=== PATIENT | female | born 1975 | race Caucasian/White ===

== ENCOUNTER 2016-06-20 23:52 | Emergency (ER) | END 2016-06-21 03:41 | disposition home or self-care (01) | DX: L02.414 Cutaneous abscess of left upper limb (principal); I10 Essential (primary) hypertension; E11.9 Type 2 diabetes mellitus without complications; Z79.4 Long term (current) use of insulin; Z79.84 Long term (current) use of oral hypoglycemic drugs | CPT/HCPCS: 10061; 96372; Z7502; Z7610 ==

== ENCOUNTER 2016-06-23 17:37 | Emergency (ER) | payer OTHER ==
[~2016-06-23] VITALS: Ht 160 cm; Wt 86.5 kg
[~2016-06-23 17:37] MED LIST: CLIN-73 PO; DOXY100T20 PO; HYDR-906 PO; IBUP-1542 PO; LANT3I SC; MECL12.574 PO; METF500T4 PO
[2016-06-23 19:31] VITALS: Ht 160 cm; Wt 86.5 kg
--- NOTE | 2016-06-23 20:35 | ERD ---
ER Documentation Chief Complaint Date/Time DATE: 06/23/16 TIME: 20:30 Chief Complaint wound check left arm HPI Patient is a 41-year-old female who presents to emergency department for wound check of the left arm abscess. Patient was seen here on 06/21/2016 for an I&D. Patient is given a prescription for clindamycin, ibuprofen and [place]. Patient states that she has been taking antibiotics as prescribed. Patient also states that she's been taking pain medication. Patient states her current pain level is an 8 out of 10. Last dose of pain medication was 2 PM today. Patient denies any fevers, chills, nausea, vomiting. Patient states she's been changing the dressing at least once a day. Patient denies any active bleeding or discharge from wound site. Tetanus is up-to-date per patient. ROS All systems reviewed and are negative except as per history of present illness. Medications Home Meds Active Scripts Hydrocodone/Acetaminophen ([place] 5-325 Tablet) 1 Each Tablet, 1 TAB PO Q6H Y for SEVERE PAIN LEVEL 7-10, #20 TAB Prov:RANDEE DELA CRUZ NP 06/21/16 Ibuprofen* (Motrin*) 600 Mg Tab, 600 MG PO Q6H Y for PAIN AND OR ELEVATED TEMP, #30 TAB Prov:RANDEE DELA CRUZ NP 06/21/16 Clindamycin Hcl* (Clindamycin Hcl*) 300 Mg Capsule, 300 MG PO TID for 10 Days, CAP Prov:RANDEE DELA CRUZ NP 06/21/16 Ibuprofen* (Motrin*) 600 Mg Tab, 600 MG PO Q6H Y for PAIN AND OR ELEVATED TEMP, #30 TAB Prov:RANDEE DELA CRUZ NP 04/18/16 Doxycycline Hyclate* (Doxycycline Hyclate*) 100 Mg Tablet.dr, 100 MG PO BID for 10 Days, TAB Prov:RANDEE DELA CRUZ NP 04/18/16 Meclizine Hcl* (Antivert*) 12.5 Mg Tab, 12.5 MG PO Q6H Y for DIZZINESS, #20 TAB Prov:ANDREW KNIGHT 01/06/16 Reported Medications Metformin* (Glucophage*) Unknown Strength Tab, PO WITH MEALS, #90 TAB 04/18/16 Insulin Glargine* (Lantus*) Unknown Strength Soln, SC DAILY, #1 VIAL 04/18/16 Allergies Allergies: Coded Allergies: No Known Allergy (Unverified , 01/06/16) PMhx/Soc History of Surgery: Yes (Cholecystectomy) Anesthesia Reaction: No Hx Neurological Disorder: No Hx Respiratory Disorders: No Hx Cardiac Disorders: Yes (HTN) Hx Psychiatric Problems: No Hx Miscellaneous Medical Probl: Yes (DM Type 2) Hx Alcohol Use: No Hx Substance Use: No Hx Tobacco Use: No Physical Exam Vitals Vital Signs Date Time Temp Pulse Resp B/P Pulse Ox O2 Delivery O2 Flow Rate FiO2 06/23/16 19:31 97.2 78 20 139/86 100 Physical Exam GENERAL: Well-developed, well-nourished female. Appears in no acute distress. HEAD: Normocephalic, atraumatic. EYES: Pupils are equally reactive bilaterally. EOMs grossly intact. No conjunctival erythema. ENT: Moist mucous membranes. No uvula deviation. No kissing tonsils. NECK: Supple. No lymphadenopathy or thyromegaly. No meningismus. LUNG: Clear to auscultation bilaterally. No rhonchi, wheezing, rales or coarse breath sounds. HEART: Regular rate and rhythm. No murmurs, rubs or gallops. EXTREMITIES: Equal pulses bilaterally. No peripheral clubbing, cyanosis or edema. No unilateral leg swelling. NEUROLOGIC: Alert and oriented. Moving all four extremities without any difficulty. Normal speech. Steady gait. SKIN: Normal color. Warm and dry. 6 cm circular erythematous abscess noted with packing in place. No active bleeding or discharge. Wound site appears dry. Minimal surrounding swelling. No lymphatic streaking. Procedures/MDM MEDICAL DECISION MAKING: This is a 41-year-old female who presents for wound check to left arm abscess. Patient had I&D of abscess on 06/21/16. Patient reports taking antibiotics as well as pain medication.. Vital signs were reviewed. Patient is afebrile. The wound appears to be healing well with no concerns of acute infection at this time. Packing was removed without any difficulty. Post-procedural wound care was discussed with the patient. PRESCRIPTIONS: Continue to take antibiotics as prescribed. Complete full course. DISCHARGE: At this time, the patient is stable for discharge and outpatient management. Post-procedural wound care was discussed with the patient. I have instructed the patient to promptly return to the ER for any new or worsening symptoms including increasing pain, fever, warmth, redness or swelling. The patient and/ or family expressed understanding of and agreement with this plan. All questions were answered. Home care instructions were provided. Departure Diagnosis: Primary Impression: Encounter for wound re-check Additional Impression: Abscess Condition: Stable Patient Instructions: Wound Care Referrals: [facility] YOU HAVE RECEIVED A MEDICAL SCREENING EXAM AND THE RESULTS INDICATE THAT YOU DO NOT HAVE A CONDITION THAT REQUIRES URGENT TREATMENT IN THE EMERGENCY DEPARTMENT. FURTHER EVALUATION AND TREATMENT OF YOUR CONDITION CAN WAIT UNTIL YOU ARE SEEN IN YOUR DOCTORS OFFICE WITHIN THE NEXT 1-2 DAYS. IT IS YOUR RESPONSIBILITY TO MAKE AN APPOINTMENT FOR FOLOW-UP CARE. IF YOU HAVE A PRIMARY DOCTOR --you should call your primary doctor and schedule an appointment IF YOU DO NOT HAVE A PRIMARY DOCTOR YOU CAN CALL OUR PHYSICIAN REFERRAL HOTLINE AT IF YOU CAN NOT AFFORD TO SEE A PHYSICIAN YOU CAN CHOSE FROM THE FOLLOWING [facility] [address] [facility] [address] [facility] [facility] [address] [facility] [address] [facility] [address] [facility] [facility] [address] [facility]. [facility] YOU HAVE RECEIVED A MEDICAL SCREENING EXAM AND THE RESULTS INDICATE THAT YOU DO NOT HAVE A CONDITION THAT REQUIRES URGENT TREATMENT IN THE EMERGENCY DEPARTMENT. FURTHER EVALUATION AND TREATMENT OF YOUR CONDITION CAN WAIT UNTIL YOU ARE SEEN IN YOUR DOCTORS OFFICE WITHIN THE NEXT 1-2 DAYS. IT IS YOUR RESPONSIBILITY TO MAKE AN APPOINTMENT FOR FOLOW-UP CARE. IF YOU HAVE A PRIMARY DOCTOR --you should call your primary doctor and schedule and appointment IF YOU DO NOT HAVE A PRIMARY DOCTOR YOU CAN CALL OUR PHYSICIAN REFERRAL HOTLINE AT . IF YOU CAN NOT AFFORD TO SEE A PHYSICIAN YOU CAN CHOSE FROM THE FOLLOWING [facility] INSTITUTIONS: [place] [id number] [place] [address] [facility] [address] [place] [address] [facility] + [facility] [address] [place] [address] Additional Instructions: Call your primary care doctor TOMORROW for an appointment during the next 1-2 days.See the doctor sooner or return here if your condition worsens before your appointment time. Take medication as prescribed. Return to emergency department for any worsening pain, swelling, warmth, fevers, chills. RUDI BAUER PA-C Jun 23, 2016 20:34
== END 2016-06-23 20:30 | disposition home or self-care (01) ==
LOC: E/R 17:37
DX: Z48.01 Encounter for change or removal of surgical wound dressing (principal); I10 Essential (primary) hypertension; E11.9 Type 2 diabetes mellitus without complications; Z79.84 Long term (current) use of oral hypoglycemic drugs; Z79.4 Long term (current) use of insulin
CPT/HCPCS: 99281

== ENCOUNTER 2017-01-29 14:39 | Emergency (ER) | payer OTHER ==
[~2017-01-29] VITALS: Ht 162.6 cm; Wt 85.0 kg
[2017-01-29 14:43] VITALS: Ht 162.6 cm; Wt 85.0 kg
[2017-01-29] MEDS ORDERED: KETOROLAC 30 MG INJ IV STA (15:29)
[2017-01-29] MEDS ORDERED: METOCLOPRAMIDE 10 MG INJ IV ONE (15:30)
[2017-01-29] MEDS ORDERED: DIPHENHYDRAMINE 50 MG INJ IV ONE (15:30)
[2017-01-29] MEDS ORDERED: SOD CHLORIDE 0.9% 1,000 ML IV ONE (15:30)
--- NOTE | 2017-01-29 16:06 | RADRPT ---
PROCEDURE: XR Chest. CLINICAL INDICATION: Abdominal pain TECHNIQUE: Single frontal view of the chest was obtained COMPARISON: None FINDINGS: No pleural effusion or pneumothorax. No consolidation. Top normal cardiomediastinal silhouette. No acute osseous abnormality. IMPRESSION: No acute cardiopulmonary disease. RPTAT: EE Daniel Gutiérrez Physician Date Time Electronically viewed and signed by Daniel Gutiérrez Physician on 01/29/2017 16:06 /
[2017-01-29 16:23] LABS: BASOPHIL # 0.1 10^3/ul (0.0-0.1); BASOPHILS % 0.6 % (0.0-2.0); EOSINOPHILS # 0.4 10^3/ul (0.0-0.5); EOSINOPHILS % 4.3 % (0.0-7.0); HEMATOCRIT 34.7 % (37.0-47.0); HEMOGLOBIN 11.6 g/dl (12.0-16.0); LYMPHOCYTES # 3.2 10^3/ul (0.8-2.9); LYMPHOCYTES % 37.4 % (15.0-51.0); MEAN CORPUSCULAR HEMOGLOBIN 28.2 pg (29.0-33.0); MEAN CORPUSCULAR HGB CONC 33.4 g/dl (32.0-37.0); MEAN CORPUSCULAR VOLUME 84.4 fl (82.0-101.0); MEAN PLATELET VOLUME 10.5 fl (7.4-10.4); MONOCYTE # 0.6 10^3/ul (0.3-0.9); MONOCYTES % 6.9 % (0.0-11.0); NEUTROPHILS % 50.5 % (39.0-77.0); PLATELET COUNT 273 10^3/UL (140-415); RED BLOOD COUNT 4.11 10^6/ul (4.20-5.40); RED CELL DISTRIBUTION WIDTH 12.9 % (11.5-14.5); WHITE BLOOD COUNT 8.6 10^3/ul (4.8-10.8)
[2017-01-29 16:44] LABS: ALBUMIN 3.8 g/dl (3.3-4.9); ALBUMIN/GLOBULIN RATIO 1.22; BILIRUBIN,INDIRECT 0.1 mg/dl (0-1.1); BILIRUBIN,TOTAL 0.1 mg/dl (0.2-1.3); CALCIUM 9.3 mg/dl (8.4-10.2); CREATININE 0.7 mg/dl (0.44-1.00); TOTAL PROTEIN 6.9 g/dl (6.1-8.1)
[2017-01-29 19:08] LABS: ADD UMIC NO; UR ASCORBIC ACID 40 mg/dL (NEGATIVE); UR BILIRUBIN (Dip) NEGATIVE (NEGATIVE); UR BLOOD (Dip) NEGATIVE (NEGATIVE); UR CLARITY CLEAR (CLEAR); UR COLOR YELLOW (YELLOW); UR GLUCOSE (Dip) 3+ mg/dL (NEGATIVE); UR KETONES (Dip) TRACE mg/dL (NEGATIVE); UR LEUKOCYTE ESTERASE (Dip) NEGATIVE Leu/ul (NEGATIVE); UR NITRITE (Dip) NEGATIVE (NEGATIVE); UR SPECIFIC GRAVITY (Dip) 1.025 (1.003-1.030); UR TOTAL PROTEIN (Dip) NEGATIVE (NEGATIVE); UR UROBILINOGEN (Dip) NEGATIVE (NEGATIVE)
[2017-01-29] MEDS ORDERED: IBUP-1542 PO (19:27)
[2017-01-29] MEDS ORDERED: ONDA4TAB14 PO (19:27)
--- NOTE | 2017-01-29 20:12 | ERD ---
ER Documentation Chief Complaint Date/Time DATE: 01/29/17 TIME: 20:05 Chief Complaint HEADACHE & SOB X4 DAYS HPI 42-year-old female patient with a past medical history of diabetes, hypertension presents the ED complaining of headache, shortness of breath that started 4 days ago. States she also feels that she has palpitations. Reports that her headache is in the left side and feels a throbbing sensation. States that her heart feels like it is beating very fast. Denies any recent traveling. Reports that she is nauseous but denies any vomiting. States that she has had a previous cholecystectomy in 1999. Reports that she takes insulin and metformin. Denies any leg swelling, chest pain, wheezing, cough, fever, chills, weakness. ROS All systems reviewed and are negative except as per history of present illness. Medications Home Meds Active Scripts Ondansetron (Ondansetron Odt) 4 Mg Tab.rapdis, 4 MG PO Q6H Y for NAUSEA AND/OR VOMITING, #10 TAB Prov:WILLIAM CAO PA-C 01/29/17 Ibuprofen* (Motrin*) 600 Mg Tab, 600 MG PO Q6, #30 TAB Prov:WILLIAM CAO PA-C 01/29/17 Hydrocodone/Acetaminophen ([place] 5-325 Tablet) 1 Each Tablet, 1 TAB PO Q6H Y for SEVERE PAIN LEVEL 7-10, #20 TAB Prov:RANDEE DELA CRUZ NP 06/21/16 Ibuprofen* (Motrin*) 600 Mg Tab, 600 MG PO Q6H Y for PAIN AND OR ELEVATED TEMP, #30 TAB Prov:RANDEE DELA CRUZ NP 06/21/16 Clindamycin Hcl* (Clindamycin Hcl*) 300 Mg Capsule, 300 MG PO TID for 10 Days, CAP Prov:RANDEE DELA CRUZ NP 06/21/16 Ibuprofen* (Motrin*) 600 Mg Tab, 600 MG PO Q6H Y for PAIN AND OR ELEVATED TEMP, #30 TAB Prov:RANDEE DELA CRUZ NP 04/18/16 Doxycycline Hyclate* (Doxycycline Hyclate*) 100 Mg Tablet.dr, 100 MG PO BID for 10 Days, TAB Prov:RANDEE DELA CRUZ NP 04/18/16 Meclizine Hcl* (Antivert*) 12.5 Mg Tab, 12.5 MG PO Q6H Y for DIZZINESS, #20 TAB Prov:ANDREW KNIGHT 01/06/16 Reported Medications Metformin* (Glucophage*) Unknown Strength Tab, PO WITH MEALS, #90 TAB 04/18/16 Insulin Glargine* (Lantus*) Unknown Strength Soln, SC DAILY, #1 VIAL 04/18/16 Allergies Allergies: Coded Allergies: No Known Allergy (Unverified , 01/06/16) PMhx/Soc History of Surgery: Yes (Cholecystectomy) Anesthesia Reaction: No Hx Neurological Disorder: No Hx Respiratory Disorders: No Hx Cardiac Disorders: Yes (HTN) Hx Psychiatric Problems: No Hx Miscellaneous Medical Probl: Yes (DM Type 2) Hx Alcohol Use: No Hx Substance Use: No Hx Tobacco Use: No Smoking Status: Never smoker Physical Exam Vitals Vital Signs Date Time Temp Pulse Resp B/P Pulse Ox O2 Delivery O2 Flow Rate FiO2 01/29/17 14:43 98.2 82 20 142/85 99 Physical Exam Const: [id number], well-nourished. In no acute distress. Head: Atraumatic, normocephalic Eyes: Normal Conjunctiva without injection. No purulent discharge. PERRLA. EOMI ENT: Normal external ear. Ear canal without erythema. Tympanic membrane pearly benitez without effusion or bulging. Nasal canal clear with normal turbinates. Moist oropharynx without tonsillar exudates. Non-erythematous pharynx. Uvula midline. No drooling. No trismus. Neck: No cervical midline tenderness. Full range of motion. No meningismus. No cervical lymphadenopathy. No JVD. Resp: Clear to auscultation bilaterally. No wheezing, rhonchi, rales, or crackles. No accessory muscle use. No retractions. Cardio: Regular rate and rhythm. No murmurs, rubs or gallops. Abd: Soft, non tender, non distended. Normal bowel sounds. No palpable masses. No rebound tenderness. No guarding. Negative McBurney's Point. Negative Foster's Sign. Skin: Normal skin turgor. No petechiae or rashes Back: No midline tenderness. No CVA tenderness. Ext: No cyanosis, or edema. Distal pulses intact bilaterally. Neur: Awake and alert. Normal gait. Normal coordination. Cranial Nerves II- VII intact. Normal finger to nose. Muscle strength 5/5. Sensation intact. Psych: Normal Mood and Affect Results 24 hrs Laboratory Tests Test 01/29/17 16:05 01/29/17 17:47 White Blood Count 8.610^3/ul Red Blood Count 4.1110^6/ul Hemoglobin 11.6g/dl Hematocrit 34.7% Mean Corpuscular Volume 84.4fl Mean Corpuscular Hemoglobin 28.2pg Mean Corpuscular Hemoglobin Concent 33.4g/dl Red Cell Distribution Width 12.9% Platelet Count 87925^3/UL Mean Platelet Volume 10.5fl Neutrophils % 50.5% Lymphocytes % 37.4% Monocytes % 6.9% Eosinophils % 4.3% Basophils % 0.6% Nucleated Red Blood Cells % 0.0/100WBC Neutrophils # (Manual) 4.310^3/ul Lymphocytes # 3.210^3/ul Monocytes # 0.610^3/ul Eosinophils # 0.410^3/ul Basophils # 0.110^3/ul Nucleated Red Blood Cells # 0.010^3/ul Sodium Level 138mmol/L Potassium Level 4.0mmol/L Chloride Level 104mmol/L Carbon Dioxide Level 26mmol/L Anion Gap 12 Blood Urea Nitrogen 12mg/dl Creatinine 0.70mg/dl Glucose Level 141mg/dl Calcium Level 9.3mg/dl Total Bilirubin 0.1mg/dl Direct Bilirubin 0.00mg/dl Indirect Bilirubin 0.1mg/dl Aspartate Amino Transf (AST/SGOT) 58IU/L Alanine Aminotransferase (ALT/SGPT) 87IU/L Alkaline Phosphatase 40IU/L Total Protein 6.9g/dl Albumin 3.8g/dl Globulin 3.10g/dl Albumin/Globulin Ratio 1.22 Urine Color YELLOW Urine Clarity CLEAR Urine pH 6.0 Urine Specific [place] 1.025 Urine Ketones TRACEmg/dL Urine Nitrite NEGATIVEmg/dL Urine Bilirubin NEGATIVEmg/dL Urine Urobilinogen NEGATIVEmg/dL Urine Leukocyte Esterase NEGATIVELeu/ul Urine Hemoglobin NEGATIVEmg/dL Urine Glucose 3+mg/dL Urine Total Protein NEGATIVEmg/dl Current Medications Medications (Trade) Dose Ordered Sig/David Route PRN Reason Start Time Stop Time Status Last Admin Dose Admin Diphenhydramine HCl (Benadryl) 25 mg ONCE ONCE IV 01/29/17 15:30 01/29/17 15:31 DC 01/29/17 16:23 Metoclopramide HCl (Reglan) 10 mg ONCE ONCE IV 01/29/17 15:30 01/29/17 15:31 DC 01/29/17 16:23 Ketorolac Tromethamine 30 mg 30 mg ONCE STAT IV 01/29/17 15:29 01/29/17 15:31 DC 01/29/17 16:22 Sodium Chloride (NS) 1,000 ml @ 1,000 mls/hr Q1H ONCE IV 01/29/17 15:30 01/29/17 16:29 DC 01/29/17 16:23 Procedures/MDM This is a 42-year-old female patient with a past medical history of hypertension , diabetes presents to the ED complaining of a headache and a throbbing sensation in the left side of her head. Patient is afebrile and nontoxic- appearing. Patient has normal vital signs. Patient was further worked up with CBC, CMP, UA, urine . Patient's pain and symptoms have improved after treatment with 1 L normal saline, 10 mg IV Reglan, 25 mg IV Benadryl, 30 mg IV Toradol. CBC: No leukocytosis. No e/o of systemic infection. Hbg 11.6 CMP: No e/o severe acidosis, alkalosis, renal failure, diabetic ketoacidosis, mildly elevated transaminitis Lipase within normal limits. Urine: No leukocyte esterase, no nitrites, no hematuria. Urine : Negative EKG reviewed and interpreted by Dr. Calabrese Rate/Rhythm: [71 bpm, Normal Sinus Rhythm] No ectopy, no ST elevations, normal axis. QRS, ST, T-waves: [No changes consistent w/ acute ischemia] Impression: [No evidence of ischemia or arrhythmia] PROCEDURE: XR Chest. CLINICAL INDICATION: Abdominal pain TECHNIQUE: Single frontal view of the chest was obtained COMPARISON: None FINDINGS: No pleural effusion or pneumothorax. No consolidation. Top normal cardiomediastinal silhouette. No acute osseous abnormality. IMPRESSION: No acute cardiopulmonary disease. Differentials for patient's symptoms are anxiety versus migraine headache versus tension headache. Low suspicion for gastritis, GERD, peptic ulcer disease, cholecystitis, choledocholithiasis, cholangitis, pancreatitis, appendicitis, bowel obstruction, ileus, volvulus, nephrolithiasis, pyelonephritis, hepatitis, perforated viscus, diverticulitis, abdominal hernia, acute abdomen, mesenteric ischemia or other emergent conditions. Low suspicion for acute myocardial infarction, pneumothorax, pneumonia, cardiac tamponade, pulmonary embolism, AAA, aortic dissection, Boerhaave's syndrome, cardiac dysrhythmias,meningitis, intracranial bleed, seizure, stroke, TIA or other emergent conditions. Discharge medications: Ibuprofen, Zofran Follow up with primary care physician in 1-2 days for referral to academic support center director. Instructed patient to return to the ED sooner for any worsening symptoms. Patient's questions were answered. Patient understood and agreed with discharge plan. Patient discharged stable. Departure Diagnosis: Primary Impression: Multiple complaints Condition: Stable Patient Instructions: Your Body's Response to Anxiety, Headache, Unspecified Referrals: [facility] YOU HAVE RECEIVED A MEDICAL SCREENING EXAM AND THE RESULTS INDICATE THAT YOU DO NOT HAVE A CONDITION THAT REQUIRES URGENT TREATMENT IN THE EMERGENCY DEPARTMENT. FURTHER EVALUATION AND TREATMENT OF YOUR CONDITION CAN WAIT UNTIL YOU ARE SEEN IN YOUR DOCTORS OFFICE WITHIN THE NEXT 1-2 DAYS. IT IS YOUR RESPONSIBILITY TO MAKE AN APPOINTMENT FOR FOLOW-UP CARE. IF YOU HAVE A PRIMARY DOCTOR --you should call your primary doctor and schedule an appointment IF YOU DO NOT HAVE A PRIMARY DOCTOR YOU CAN CALL OUR PHYSICIAN REFERRAL HOTLINE AT IF YOU CAN NOT AFFORD TO SEE A PHYSICIAN YOU CAN CHOSE FROM THE FOLLOWING [facility] [address] [facility]. [facility] [address] [facility] [address] [facility] [facility] [address] [facility] [address] [facility]. [facility]. [address] [facility] YOU HAVE RECEIVED A MEDICAL SCREENING EXAM AND THE RESULTS INDICATE THAT YOU DO NOT HAVE A CONDITION THAT REQUIRES URGENT TREATMENT IN THE EMERGENCY DEPARTMENT. FURTHER EVALUATION AND TREATMENT OF YOUR CONDITION CAN WAIT UNTIL YOU ARE SEEN IN YOUR DOCTORS OFFICE WITHIN THE NEXT 1-2 DAYS. IT IS YOUR RESPONSIBILITY TO MAKE AN APPOINTMENT FOR FOLOW-UP CARE. IF YOU HAVE A PRIMARY DOCTOR --you should call your primary doctor and schedule and appointment IF YOU DO NOT HAVE A PRIMARY DOCTOR YOU CAN CALL OUR PHYSICIAN REFERRAL HOTLINE AT . IF YOU CAN NOT AFFORD TO SEE A PHYSICIAN YOU CAN CHOSE FROM THE FOLLOWING [facility] INSTITUTIONS: [facility] [address] [place] [address] [facility] [address] [place], [place] [id number] [place] [address] [address] [place] [address] [facility] URGENT CARE/SPECIALTIES Additional Instructions: Llame al doctor MAANA y casey annabel ACACIA PARA DENTRO DE 1-2 KRAFT.Dgale a la secretaria que nosotros le instruimos hacer esta acacia.Avise o llame si morillo condicin se empeora antes de la acacia. Regresa aqui si peor o no mejor. WILLIAM CAO PA-C Jan 29, 2017 20:12 WILLIAM CAO PA-C Jan 29, 2017 20:12
[2017-01-29 20:59] VITALS: BP 121/76; PULSE 78; RESP 20; TEMP 98.8
== END 2017-01-29 20:15 | disposition home or self-care (01) ==
LOC: FTE 14:39
DX: R51 Headache (principal); R06.02 Shortness of breath; R00.2 Palpitations; I10 Essential (primary) hypertension; E11.9 Type 2 diabetes mellitus without complications; Z79.4 Long term (current) use of insulin; Z79.84 Long term (current) use of oral hypoglycemic drugs
CPT/HCPCS: 36415; 71010; 80053; 81003; 85025; 93005; 96374; 96375; J1200; J1885; J2765; J7030; Z7502

== ENCOUNTER 2017-04-06 14:37 | Emergency (ER) | payer OTHER ==
[~2017-04-06] VITALS: Ht 167.6 cm; Wt 84.8 kg
[~2017-04-06 14:37] MED LIST changes: +ONDA4TAB14 PO
[2017-04-06 14:49] VITALS: Ht 167.6 cm; Wt 84.8 kg
[2017-04-06] MEDS ORDERED: KETOROLAC 30 MG INJ IM STA (15:13)
--- NOTE | 2017-04-06 15:20 | ERD ---
ER Documentation Chief Complaint Chief Complaint Complains of arms and shoulder pain radietes to the neck HPI 42-year-old female complains of bilateral shoulder pain going to her neck, she states that is worse on the left side and has similar pain like this several years ago when she hurt herself from lifting heavy objects out her work. She describes achy pain that is diffuse, worse in movement, is constant. She denies any chest pain, shortness of, dizziness, syncope. ROS All systems reviewed and are negative except as per history of present illness. Medications Home Meds Active Scripts Naproxen* (Naprosyn*) 500 Mg Tablet, 500 MG PO BID Y for PAIN AND/OR INFLAMMATION, #30 TAB Prov:DIANA LÓPEZ PA-C 04/06/17 Hydrocodone/Acetaminophen ([place] 5-325 Tablet) 1 Each Tablet, 1 TAB PO Q6H Y for PAIN, #7 TAB Prov:DIANA LÓPEZ PA-C 04/06/17 Ondansetron (Ondansetron Odt) 4 Mg Tab.rapdis, 4 MG PO Q6H Y for NAUSEA AND/OR VOMITING, #10 TAB Prov:WILLIAM CAO PA-C 01/29/17 Ibuprofen* (Motrin*) 600 Mg Tab, 600 MG PO Q6, #30 TAB Prov:WILLIAM CAO PA-C 01/29/17 Hydrocodone/Acetaminophen ([place] 5-325 Tablet) 1 Each Tablet, 1 TAB PO Q6H Y for SEVERE PAIN LEVEL 7-10, #20 TAB Prov:RANDEE DELA CRUZ NP 06/21/16 Ibuprofen* (Motrin*) 600 Mg Tab, 600 MG PO Q6H Y for PAIN AND OR ELEVATED TEMP, #30 TAB Prov:RANDEE DELA CRUZ NP 06/21/16 Clindamycin Hcl* (Clindamycin Hcl*) 300 Mg Capsule, 300 MG PO TID for 10 Days, CAP Prov:RANDEE DELA CRUZ NP 06/21/16 Ibuprofen* (Motrin*) 600 Mg Tab, 600 MG PO Q6H Y for PAIN AND OR ELEVATED TEMP, #30 TAB Prov:RANDEE DELA CRUZ NP 04/18/16 Doxycycline Hyclate* (Doxycycline Hyclate*) 100 Mg Tablet.dr, 100 MG PO BID for 10 Days, TAB Prov:RANDEE DELA CRUZ TEST DESK TROUBLE LOCATOR 04/18/16 Meclizine Hcl* (Antivert*) 12.5 Mg Tab, 12.5 MG PO Q6H Y for DIZZINESS, #20 TAB Prov:ANDREW KNIGHT 01/06/16 Reported Medications Metformin* (Glucophage*) Unknown Strength Tab, PO WITH MEALS, #90 TAB 04/18/16 Insulin Glargine* (Lantus*) Unknown Strength Soln, SC DAILY, #1 VIAL 04/18/16 Allergies Allergies: Coded Allergies: No Known Allergy (Unverified , 01/06/16) PMhx/Soc History of Surgery: Yes (Cholecystectomy) Anesthesia Reaction: No Hx Neurological Disorder: No Hx Respiratory Disorders: No Hx Cardiac Disorders: Yes (HTN) Hx Psychiatric Problems: No Hx Miscellaneous Medical Probl: Yes (DM Type 2) Hx Alcohol Use: No Hx Substance Use: No Hx Tobacco Use: No Physical Exam Vitals Vital Signs Date Time Temp Pulse Resp B/P Pulse Ox O2 Delivery O2 Flow Rate FiO2 04/06/17 14:49 98.7 92 20 123/83 99 Physical Exam General: Well-developed, well-nourished. The patient appears in no acute distress. HEENT: Head is normocephalic, atraumatic. No scleral icterus. Neck: Supple. Nontender, full range of motion. Lungs: Clear to auscultation. Normal air movement. Heart: Regular rate and rhythm. S1 and S2 are normal. No murmurs, gallops, or rubs. Abdomen: Nondistended. Extremities: Patient has full range of motion to bilateral shoulders, there are no bony deformities, she has reproducible pain with internal rotation and abduction. Neurologic: Alert and oriented 3. No focal deficits. Normal speech and gait. Skin: Normal turgor. No rash or lesions. Results 24 hrs Current Medications Medications (Trade) Dose Ordered Sig/David Route PRN Reason Start Time Stop Time Status Last Admin Dose Admin Ketorolac Tromethamine (Toradol) 30 mg ONCE STAT IM 04/06/17 15:13 04/06/17 15:16 DC 04/06/17 15:37 Acetaminophen/ Hydrocodone Bitart ([place] (10/325)) 1 tab ONCE ONCE PO 04/06/17 17:30 04/06/17 17:31 04/06/17 17:06 EKG: Reviewed by Dr. Cano Rate/Rhythm: Normal Sinus Rhythm rate of 85 QRS, ST, T-waves: No changes consistent w/ acute ischemia Impression: No evidence of ischemia or arrhythmia DIAGNOSTIC IMAGING REPORT Patient: JOHNATHON LE : 1975 Age: 42 Sex: F MR #: [id number] DOS: 04/06/173 Ordering MD: DIANA LÓPEZ PA-C Location: [facility] Room/Bed: PROCEDURE: XR Left Shoulder. CLINICAL INDICATION: Left shoulder pain TECHNIQUE: 3 views of the left shoulder are available for review. COMPARISON: None available FINDINGS: There is no acute fracture. Alignment is normal. Joint spaces are preserved. There is a probable small subacromial enthesophyte. Enthesopathic change at the greater tuberosity is noted. Visualized left lung is clear. IMPRESSION: 1. No radiographic evidence of acute osseous abnormality. 2. Probable small subacromial enthesophyte. RPTAT: UU .Ty Ashby MD, MD Date Time Electronically viewed and signed by .Ty Ashby MD, MD on 04/06/2017 17: 21 .K/ CC: DIANA LÓPEZ PA-C DIAGNOSTIC IMAGING REPORT Patient: JOHNATHON LE : 1975 Age: 42 Sex: F MR #: [id number] DOS: 04/06/173 Ordering MD: DIANA LÓPEZ PA-C Location: [facility] Room/Bed: PROCEDURE: XR right Shoulder. CLINICAL INDICATION: Right shoulder pain for 2 weeks TECHNIQUE: 3 views of the right shoulder are available for review. COMPARISON: None available FINDINGS: There is no acute fracture. Alignment is normal. Joint spaces are preserved. There is a probable small subacromial enthesophyte. Visualized right lung is clear. IMPRESSION: 1. No radiographic evidence of acute osseous abnormality. 2. Probable small subacromial enthesophyte. RPTAT: UU .Ty Ashby MD, Date Time Electronically viewed and signed by .Ty Ashby MD, on 04/06/2017 17: 21 .K/ CC: DIANA LÓPEZ PA-C Procedures/MDM 42-year-old female comes emergency department with bilateral shoulder pain, headache for 2 weeks. Patient's shoulder x-rays are unremarkable. There are no acute findings seen on the EKG and her history is not concerning for acute coronary syndrome, pulmonary embolus or dissection. She has associated left- sided neck pain and head pain, likely tension headache, musculoskeletal pain. Departure Diagnosis: Primary Impression: Shoulder pain Additional Impression: Headache Condition: Good DIANA LÓPEZ PA-C Apr 06, 2017 15:20
--- NOTE | 2017-04-06 17:21 | RADRPT ---
PROCEDURE: XR right Shoulder. CLINICAL INDICATION: Right shoulder pain for 2 weeks TECHNIQUE: 3 views of the right shoulder are available for review. COMPARISON: None available FINDINGS: There is no acute fracture. Alignment is normal. Joint spaces are preserved. There is a probable small subacromial enthesophyte. Visualized right lung is clear. IMPRESSION: 1. No radiographic evidence of acute osseous abnormality. 2. Probable small subacromial enthesophyte. RPTAT: UU .Ty Ashby MD, Date Time Electronically viewed and signed by .Ty Ashby MD, on 04/06/2017 17:21 .K/
--- NOTE | 2017-04-06 17:22 | RADRPT ---
PROCEDURE: XR Left Shoulder. CLINICAL INDICATION: Left shoulder pain TECHNIQUE: 3 views of the left shoulder are available for review. COMPARISON: None available FINDINGS: There is no acute fracture. Alignment is normal. Joint spaces are preserved. There is a probable small subacromial enthesophyte. Enthesopathic change at the greater tuberosity i s noted. Visualized left lung is clear. IMPRESSION: 1. No radiographic evidence of acute osseous abnormality. 2. Probable small subacromial enthesophyte. RPTAT: UU .Ty Ashby MD, MD Date Time Electronically viewed and signed by .Ty Ashby MD, MD on 04/06/2017 17:21 .K/
[2017-04-06] MEDS ORDERED: HYDR-906 PO (17:26)
[2017-04-06] MEDS ORDERED: NAPR-260 PO (17:26)
[2017-04-06] MEDS ORDERED: HYDROCODONE/APAP (10/325) TAB PO ONE (17:30)
== END 2017-04-06 17:37 | disposition home or self-care (01) ==
LOC: FTE 14:37
DX: M25.512 Pain in left shoulder (principal); M25.511 Pain in right shoulder; R51 Headache; I10 Essential (primary) hypertension; E11.9 Type 2 diabetes mellitus without complications; Z79.4 Long term (current) use of insulin; Z79.84 Long term (current) use of oral hypoglycemic drugs
CPT/HCPCS: 73030; 93005; 96372; J1885; Z7502; Z7610

== ENCOUNTER 2018-05-10 18:20 | Emergency (ER) | payer OTHER ==
[~2018-05-10] VITALS: Wt 81.1 kg
[~2018-05-10 18:20] MED LIST changes: -CLIN-73 PO; +CLIN300C10 PO; +HYDR-4011 PO; -HYDR-906 PO; +METF-849 PO; -METF500T4 PO; +NAPR-985 PO
[2018-05-10] MEDS ORDERED: OSLT75C PO (19:41)
[2018-05-10] MEDS ORDERED: IBUP800T48 PO (19:41)
[2018-05-10 19:59] VITALS: BP 184/100; PULSE 77; RESP 18
--- NOTE | 2018-05-11 01:13 | ERD ---
ER Documentation Chief Complaint Chief Complaint flu-liked symptoms x days HPI Patient is a 43-year-old female with past medical history of hypertension and type 2 diabetes presenting to the emergency department complaining of intermittent body aches starting today. She took no medication for relief of symptoms. Symptoms are overall moderate in severity. She denies any sick contacts. No other symptoms reported at this time. ROS All systems reviewed and are negative except as per history of present illness. Medications Home Meds Active Scripts Oseltamivir Phosphate* (Tamiflu*) 75 Mg Capsule, 75 MG PO BID for 5 Days, #10 CAP Prov:RUTH BURTON PA-C 05/10/18 Ibuprofen* (Motrin*) 800 Mg Tab, 800 MG PO Q6, #30 TAB Prov:RUTH BURTON PA-C 05/10/18 Naproxen* (Naprosyn*) 500 Mg Tablet, 500 MG PO BID PRN for PAIN AND/OR INFLAMMATION, #30 TAB Prov:DIANA LÓPEZ PA-C 04/06/17 Hydrocodone/Acetaminophen ([place] 5-325 Tablet) 1 Each Tablet, 1 TAB PO Q6H PRN for PAIN, #7 TAB Prov:DIANA LÓPEZ PA-C 04/06/17 Ondansetron (Ondansetron Odt) 4 Mg Tab.rapdis, 4 MG PO Q6H PRN for NAUSEA AND/OR VOMITING, #10 TAB Prov:WILLIAM CAO PA-C 01/29/17 Ibuprofen* (Motrin*) 600 Mg Tab, 600 MG PO Q6, #30 TAB Prov:WILLIAM CAO PA-C 01/29/17 Hydrocodone/Acetaminophen ([place] 5-325 Tablet) 1 Each Tablet, 1 TAB PO Q6H PRN for SEVERE PAIN LEVEL 7-10, #20 TAB Prov:RANDEE DELA CRUZ NP 06/21/16 Ibuprofen* (Motrin*) 600 Mg Tab, 600 MG PO Q6H PRN for PAIN AND OR ELEVATED TEMP, #30 TAB Prov:RANDEE DELA CRUZ NP 06/21/16 Clindamycin Hcl* (Clindamycin Hcl*) 300 Mg Capsule, 300 MG PO TID for 10 Days, CAP Prov:RANDEE DELA CRUZ NP 06/21/16 Ibuprofen* (Motrin*) 600 Mg Tab, 600 MG PO Q6H PRN for PAIN AND OR ELEVATED TEMP, #30 TAB Prov:LINDA DELA CRUZHanny Bella [employer]NAGEMENT EXECUTIVE 04/18/16 Doxycycline Hyclate* (Doxycycline Hyclate*) 100 Mg Tablet.dr, 100 MG PO BID for 10 Days, TAB Prov:RANDEE DELA CRUZ KERA Bella [employer]NAG[employer] EXECUTIVE 04/18/16 Meclizine Hcl* (Antivert*) 12.5 Mg Tab, 12.5 MG PO Q6H PRN for DIZZINESS, #20 TAB Prov:ANDREW KNIGHT 01/06/16 Reported Medications Metformin* (Glucophage*) Unknown Strength Tab, PO WITH MEALS, #90 TAB 04/18/16 Insulin Glargine* (Lantus*) Unknown Strength Soln, SC DAILY, #1 VIAL 04/18/16 Allergies Allergies: Coded Allergies: No Known Allergy (Unverified , 01/06/16) PMhx/Soc History of Surgery: Yes (Cholecystectomy) Anesthesia Reaction: No Hx Neurological Disorder: No Hx Respiratory Disorders: No Hx Cardiac Disorders: Yes (HTN) Hx Psychiatric Problems: No Hx Miscellaneous Medical Probl: Yes (DM Type 2) Hx Alcohol Use: No Hx Substance Use: No Hx Tobacco Use: No FmHx Family History: No diabetes Physical Exam Vitals Vital Signs Date Temp Pulse Resp B/P (MAP) Pulse Ox O2 O2 Flow FiO2 Time Delivery Rate 05/10/18 77 18 184/100 98 Room Air 19:59 (128) 05/10/18 99.5 92 20 170/86 97 18:33 (114) Physical Exam Const: No acute distress Head: Atraumatic Eyes: Normal Conjunctiva ENT: Normal External Ears, Nose and Mouth. Mild erythema noted to the posterior pharynx. Airway is patent. Uvula is midline. There is no tonsillar hypertrophy or exudate noted. Neck: Full range of motion. No meningismus. Resp: Clear to auscultation bilaterally Cardio: Regular rate and rhythm, no murmurs Abd: Soft, non tender, non distended. Normal bowel sounds. No rebound tenderness or guarding. No McBurney's point tenderness. Skin: No petechiae or rashes Back: No midline or flank tenderness Ext: No cyanosis, or edema Neur: Awake and alert Psych: Normal Mood and Affect Procedures/MDM 43-year-old female presenting to the emergency department complaining of body aches and fevers. Patient is nontoxic and well-appearing. She is afebrile. The patient's clinical presentation is very consistent with an acute viral syndrome. The patient does not exhibit any clinical signs or symptoms concerning for serious bacterial infection or systemic illness. Based on history and clinical exam findings the patient does not appear to have evidence of pneumonia, strep pharyngitis, urinary tract infection, bacteremia, sepsis, or meningitis. For these reasons I do not believe it is necessary to obtain laboratory testing or diagnostic imaging. I believe it would be appropriate for symptom control, and close outpatient primary care follow-up. Based on patient's history of present illness and physical examination the decision was made to discharge. There is no evidence of life threatening injuries or illnesses at this time. On re-examination, patient resting in no distress, stable vital signs, reports feeling better and safe for discharge with outpatient follow up with PMD in 1-2 days. Patient given return precautions. Patient's blood pressure was elevated (>120/80) but appears stable without evidence of hypertension emergency or urgency. The patient is to follow-up and pursue outpatient monitoring and therapy with their primary care physician within 1 week and return immediately if they have any new, worsening, or concerning symptoms. Disclaimer: Inadvertent spelling and grammatical errors are likely due to EHR/dictation software use and do not reflect on the overall quality of patient care. Also, please note that the electronic time recorded on this note does not necessarily reflect the actual time of the patient encounter. Departure Diagnosis: Primary Impression: Influenza-like symptoms Condition: Fair Patient Instructions: Influenza (Adult) [facility] Usted se lawrence hecho un examen mdico de control que le indica que no est en annable condicin que requiera tratamiento urgente en el Departamento de Emergencia. Un estudio ms profundo y el tratamiento de morillo condicin pueden esperar sin ningn riesgo hasta que usted sea atendida/o en el consultorio de morillo mdico o annabel clnica. Es responsabilidad suya arreglar annabel acacia para el seguimiento del isma. MANEJO DE CONDICIONES NO URGENTES EN EL FUTURO 1) Si usted tiene un mdico de atencin primaria: Usted debera llamar a morillo mdico de atencin primaria antes de venir al departamento de emergencia. Despus de las horas de consultorio, morillo doctor o morillo asociado/a est disponible por telfono. El mdico o enfermero de galen en el servicio telefnico puede asesorarle por jaime medio para atender el problema, o isma contrario se puede programar annabel acacia. 2) Si usted no tiene un mdico de atencin primaria: Llame al mdico o clnica de referencia que aparece abajo yusuf las horas de consultorio para hacer annabel acacia para que le vean. CLINICAS: [place] [id number] [phone] [facility] [facility] [phone] [facility] [phone] [facility] [place] [id number] [phone] [facility]. [place] [phone] [place] [id number] [phone] Additional Instructions: Llame al doctor MAANA y casey annabel ACACIA PARA DENTRO DE 1-2 KRAFT.Dgale a la secretaria que nosotros le instruimos hacer esta acacia.Avise o llame si morillo cond icin se empeora antes de la acacia. Regresa aqui si peor o no mejor. RUTH BURTON PA-C May 11, 2018 01:13
== END 2018-05-10 20:00 | disposition home or self-care (01) ==
LOC: FTE 18:20
DX: R52 Pain, unspecified (principal); I10 Essential (primary) hypertension; E11.9 Type 2 diabetes mellitus without complications; Z79.4 Long term (current) use of insulin
CPT/HCPCS: 99283